=== PATIENT | female | born 1995 | race Caucasian/White ===

== ENCOUNTER 2017-09-21 11:00 | Inpatient (IN) | payer SELFPAY ==
[2017-09-21 09:41] VITALS: BMI 44.6
[2017-09-21] MEDS: Lactated Ringers 1,000 ML 50 ML IV ×2 (11:25→12:08)
[2017-09-21 11:52] LABS: Hematocrit 36.3 % (37-47); Hemoglobin 12.1 g/dl (12.0-15.0); Mean Corp Hgb Conc 33.3 g/gl (32-36); Mean Corpuscular Hgb 27.6 pg (27.0-32.0); Mean Corpuscular Volume 82.9 fL (81-99); Platelet Count 200 K/mm3 (150-450); RBC Distribution Width CV 13.3 % (11.6-14.6); RBC Distribution Width SD 39.7 fl (35.1-43.9); Red Blood Count 4.38 M/mm3 (4.2-5.4); White Blood Count 14.5 K/mm3 (4.4-11.0)
[2017-09-21 11:53] LABS: Scan Indicated on CBC? Y/N NO
[2017-09-21] MEDS: fentaNYL-bupivacaine (epidural) 100 ML BAG EPIDURAL (12:35)
--- NOTE | 2017-09-21 13:09 | PCM.HP.OB ---
- Problem List (1) Obesity affecting in third trimester Status: Acute (2) Hx of herpes simplex infection Status: Resolved History Date of Admission: 09/21/17 Final DEMETRIUS: 09/17/17 Final DEMETRIUS Source: US <20 weeks Gestational age: 40 Weeks and 4 Days History of this : This is a 22 year-old, G [], P [], at 40 weeks gestational age. Allergies No Known Allergies Allergy (Verified 09/21/17 09:43) Home Medications: Home Medications Acyclovir [Zovirax] 400 mg PO TID 09/21/17 Vits [Prenatabs FA] 1 tablet PO DAILY 09/21/17 Acyclovir 400mg PO TID Smoking Status: Never smoker Alcohol: None Number of Fetus(es): 1 History Past Pregnancies: Past Pregnancies Delivery Date Name GA/Weeks Outcome Route Weight Gender Labor Length Anesthesia Delivery Location Provider FOB Labs: GBS Neg, Urine tox Neg, GC/CT = Neg/ Neg, H/H = 12.3/35.1, 1 hours GCT = 102, HIV = Neg, HbSag = Neg, Rubella = Immune, Rh POs Expected Delivery Method: Spontaneous Vaginal Describe any other labor & delivery plans:: Desires epidural with planned Number of Visits: 6 with [facility], previous provider in [place] Review of Systems Constitutional: Denies: Chills, Fever, Weight Change HEENT: Denies: Head Aches, Sinus Congestion, Sinus Drainage Cardiovascular: Denies: Chest Pain, Palpitations Respiratory: Denies: Cough, Shortness of breath at rest, Sputum production Gastrointestinal: Denies: Abdominal Pain, Nausea, Vomiting Genitourinary: Denies: Dysuria Musculoskeletal: Denies: Joint Pain, Joint Tenderness Skin: Denies: Rash, Wounds Neurological: Denies: Numbness, Tingling, Focal weakness Psychiatric: Denies: Anxiety, Depression, Homicidal Ideations, Suicidal Ideations Hematologic/ Lymphatic: Denies: Easy Bruising, Easy Bleeding Physical Exam Vitals: FHT baseline 140, moderate variability, + accels, no decels Ctx q 2-3 minutes, palpate moderate to strong General: Alert, Oriented x3, No apparent distress HEENT: Atraumatic, Normocephalic. Negative for: Thyromegaly, Lymphadenopathy Cardiovascular: Regular rate, Regular Rhythm Lungs: Clear to auscultation Abdomen: Bowel Sounds Present, Gravid, Appropriate for Gestational Age - EFW 8# Neurological: Deep Tendon Reflexes 2+/4 and Symmetrical, Neuro grossly intact PEAR PICKER: Normal external genitalia - No lesions noted. Negative for: Vulvar lesions Estimated gestational size: Appropriate for gestational size Presentation: Cephalic Cervix Dilation (cm): 4 - By RN exam initially, patient cervix then changed to 5/90/-2 and was admitted Station: -3 Effacement (%): 80 Assessment/Plan All Active Problems Obesity affecting in third trimester (Acute) Hx of herpes simplex infection (Resolved) This is a 22 year-old, G [2], P [1], at 40 weeks gestational age, Active Labor, Category I FHT P: 1) Admit patient, Dr. Caceres OB collaborating physician notified of admission 2) Epidural at this time if patient desires 3) Anticipate Bertha Beltran APRN-CNRosy
--- NOTE | 2017-09-21 13:18 | HP.PCM_ITS ---
- Problem List (1) Obesity affecting in third trimester Status: Acute (2) Hx of herpes simplex infection Status: Resolved History Date of Admission: 09/21/17 Final DEMETRIUS: 09/17/17 Final DEMETRIUS Source: US <20 weeks Gestational age: 40 Weeks and 4 Days History of this : This is a 22 year-old, G [], P [], at 40 weeks gestational age. Allergies No Known Allergies Allergy (Verified 09/21/17 09:43) Home Medications: Home Medications Acyclovir [Zovirax] 400 mg PO TID 09/21/17 Vits [Prenatabs FA] 1 tablet PO DAILY 09/21/17 Acyclovir 400mg PO TID Smoking Status: Never smoker Alcohol: None Number of Fetus(es): 1 History Past Pregnancies: Past Pregnancies Delivery Date Name GA/Weeks Outcome Route Weight Gender Labor Length Anesthesia Delivery Location Provider FOB Labs: GBS Neg, Urine tox Neg, GC/CT = Neg/ Neg, H/H = 12.3/35.1, 1 hours GCT = 102, HIV = Neg, HbSag = Neg, Rubella = Immune, Rh POs Expected Delivery Method: Spontaneous Vaginal Describe any other labor & delivery plans:: Desires epidural with planned Number of Visits: 6 with [facility], previous provider in [place] Review of Systems Constitutional: Denies: Chills, Fever, Weight Change HEENT: Denies: Head Aches, Sinus Congestion, Sinus Drainage Cardiovascular: Denies: Chest Pain, Palpitations Respiratory: Denies: Cough, Shortness of breath at rest, Sputum production Gastrointestinal: Denies: Abdominal Pain, Nausea, Vomiting Genitourinary: Denies: Dysuria Musculoskeletal: Denies: Joint Pain, Joint Tenderness Skin: Denies: Rash, Wounds Neurological: Denies: Numbness, Tingling, Focal weakness Psychiatric: Denies: Anxiety, Depression, Homicidal Ideations, Suicidal Ideations Hematologic/ Lymphatic: Denies: Easy Bruising, Easy Bleeding Physical Exam Vitals: FHT baseline 140, moderate variability, + accels, no decels Ctx q 2-3 minutes, palpate moderate to strong General: Alert, Oriented x3, No apparent distress HEENT: Atraumatic, Normocephalic. Negative for: Thyromegaly, Lymphadenopathy Cardiovascular: Regular rate, Regular Rhythm Lungs: Clear to auscultation Abdomen: Bowel Sounds Present, Gravid, Appropriate for Gestational Age - EFW 8# Neurological: Deep Tendon Reflexes 2+/4 and Symmetrical, Neuro grossly intact [employer]: Normal external genitalia - No lesions noted. Negative for: Vulvar lesions Estimated gestational size: Appropriate for gestational size Presentation: Cephalic Cervix Dilation (cm): 4 - By RN exam initially, patient cervix then changed to 5 /90/-2 and was admitted Station: -3 Effacement (%): 80 Assessment/Plan All Active Problems Obesity affecting in third trimester (Acute) Hx of herpes simplex infection (Resolved) This is a 22 year-old, G [2], P [1], at 40 weeks gestational age, Active Labor, Category I FHT P: 1) Admit patient, Dr. Caceres OB collaborating physician notified of admission 2) Epidural at this time if patient desires 3) Anticipate Bertha Beltran APRN-CNRosy
--- NOTE | 2017-09-21 13:18 | PCM.PN.BLA ---
Progress Note Addendum: Patient has received epidural and feels more comfortable now. Reports increased rectal pressure - SVE reveals 6-7/90/-2 with BBOW. Will continue expectant mgmt at this time, consider AROM if no cervical change in 2-4 hours with next exam. Bertha Beltran APRN-CNM
[2017-09-21] MEDS: Ondansetron 4 MG/2 ML Vial IV (16:12)
--- NOTE | 2017-09-21 17:05 | PCM.PN.BLA ---
Progress Note S: Patient sitting up in bed, remains comfortable with epidural at this time. Patient notes no changes in rectal or pelvic pressure. By RN exam, cervix has made minimal change. Decision for AROM done. O: VSS, Afebrile Abd gravid, HUGO by [facility], EFW = 8# FHT baseline 150, moderate variability, + accels, no decels Ctx a 1-3 minutes, moderately strong to palpation SVE = 6-7/90/-1 with BBOW, AROM for scant clear and mucus fluid A: 22 y/o @ 40+ weeks, Protracted Active Phase of Labor P: 1) AROM done without difficulty 2) Anticipate 3) If minimal to no cervical change, start IV pitocin for labor augmentation Bertha DIA
[2017-09-21] MEDS: Oxytocin 30 units/NS 500 ml 30 UNITS/500 ML IV.SOLN 334 UNITS IV (20:00)
[2017-09-21] MEDS: COPPER IUD 1 EACH IY (20:05)
--- NOTE | 2017-09-21 20:19 | PCM.OB.VAG ---
- Problem List (1) Obesity affecting in third trimester Status: Acute (2) Hx of herpes simplex infection Status: Resolved Vaginal Delivery Maternal Presentation: Active Labor Patient reported ctx that started last night and progressed spontaneously without issue to C/C/0 to +1 station after AROM. Amniotic Membrane Rupture Type: Artificial Amniotic Fluid Description: Clear, Moderate meconium - Clear fluid at AROM, during pushing meconium was visible on baby's head Final DEMETRIUS: 09/17/17 Gestational age: 40 Weeks and 4 Days doctor who attended delivery (if requested by OB): Earlene Real Date of Procedure: 09/21/17 Pre-Operative Diagnosis: Active Labor Post-Operative Diagnosis: with MSAF, no complications Surgery/ Procedure Performed: Spontaneous Vaginal Delivery Anesthesiologist: Toy Perales Type of Anesthesia: None Description of Procedure: Patient assessed and found to be C/C/0. Patient pushed well with urge. Delivered viable girl over 2nd degree lacerated perineum at 1952. Infant delivered OA, restituted to HUGO then LOT. Scant thin meconium seen on baby's head, moderate meconium noted in fluid after delivery of head. Peds staff at bedside for delivery. Shoulders and body then delivered without difficulty. Infant with spontaneous cry and respirations immediately, mouth and nose bulb suctioned. No indication for DeLee Deep Suctioning due to spontaneous lusty cry. Apgars 8 and 9. weight pending. Umbilical cord clamped and cut by FOB once it stopped pulsing. Placenta delivered spontaneously via Null mechanism intact with 3VC. Placental triage significant for MSAF and calcifications on maternal surface. Uterus vigorously massaged, large gush of blood noted initially. EBL = 250cc. FF midline @ 2FB below umbilicus. Paragard IUD placed using sterile technique per protocol. Upon inspection of vaginal vault, shallow 2nd degree perineal laceration noted and repaired under epidural analgesia in the usual fashion using 3-0 Rapide suture. Sponge and needle count correct. Vaginal sweep negative. Ice to perineum. Baby to breast, and bonding initiated. Bertha Beltran [employer]-CNM Presentation: Vertex Placental Delivery Description: Spontaneous Placenta Disposition: [facility] Cord Vessel Description: 3 Vessels Cord Entanglement: None Estimated Blood Loss: 250cc A gender: Female (1 minute): 8 (5 minute): 9 Episiotomy Description: None Laceration: Perineal Extension/lac, 2nd degree Medications given after delivery: IV Pitocin Complications: None
[2017-09-21] MEDS: Oxytocin 30 units/NS 500 ml 30 UNITS/500 ML IV.SOLN 167 UNITS IV (20:30)
--- NOTE | 2017-09-21 20:47 | DCINST_ITS ---
Discharge Diet: No Restrictions Discharge Activity: Return to Normal Activity, May not drive while taking narcotic pain medications., May Shower May resume sexual activity in: 4-6 weeks Additional Activity Instructions:: Nothing in the vagina for 4-6 weeks. You may return to work/school in 6 weeks. Call your doctor if your incision/area has: Continuous Slow Oozing, Sudden Increased Bleeding, Increased Pain/ Swelling, Increased Redness, Foul Smelling Discharge Additional Instructions: If you experience any of the following, contact your healthcare provider. * Bleeding that soaks a pad every hour for 2 hours * Fever 100.4 or higher * Unrelieved incision or abdominal pain * Swelling, redness, discharge or bleeding from your incision or episiotomy site * Your incision begins to separate * Problems urinating (including inability to urinate or burning while urinating) . * Visual changes * Severe headache * Flu-like symptoms * Pain or redness in one of both of your breasts * Pain, warmth, tenderness or swelling in your legs, especially the calf area * Frequent nausea and vomiting * Symptoms of depression or anxiety If you experience any of the following, call 911 or go to the nearest Emergency Room. * Chest pain * Problems breathing * Seizure activity * Partial or complete paralysis of a body part, slurred speech, weakness or drooping of the face, or a sudden inability to walk or hold your balance Allergies/Adverse Reactions: Allergies No Known Allergies Allergy (Verified 09/21/17 09:43) Medications to take at Discharge Acyclovir [Zovirax] 400 mg PO TID 09/21/17 Vits [Prenatabs FA] 1 tablet PO DAILY 09/21/17 Please Follow Up With: Bertha Beltran CNM When: Call to make an appointment with your doctor in 6 weeks. If you had elevated Blood Pressure or 4th degree laceration you will need to be seen in 2 weeks. Primary Care Physician: Care Physician,No Primary [Primary Care Provider] - Proposed Discharge Date: 09/23/17
[2017-09-21] MEDS: 0.9% Saline Lock 10 ML Syringe IV (21:47)
[2017-09-22] MEDS: Ibuprofen 600 MG Tablet PO ×3 (00:11→20:20)
--- NOTE | 2017-09-22 00:12 | NURSING ---
epidural cath d/c with blue tip intact.
[2017-09-22 00:17] VITALS: BP 123/67; PULSE 112; RESP 18; TEMP 36.6; O2SAT 99
[2017-09-22 03:43] VITALS: BP 102/46; PULSE 81; RESP 16; TEMP 36.3; O2SAT 97
[2017-09-22 08:45] VITALS: BP 120/66; PULSE 83; RESP 20; TEMP 36.9; O2SAT 97
[2017-09-22 12:45] VITALS: BP 118/58; PULSE 74; TEMP 36.4; O2SAT 98
[2017-09-22 16:28] VITALS: BP 119/68; PULSE 84; TEMP 36.6; O2SAT 97
--- NOTE | 2017-09-22 19:50 | PCM.PN.OB ---
Patient Problems: Active and Suspected Problems Obesity affecting in third trimester (Acute) Subjective: No complaints - Physical Exam General: Alert, Oriented x3 Abdomen: Soft, Non Tender, Non-Distended - ff mid & below umb Extremities: No Calf Tenderness Vital Signs Temp Pulse Resp BP Pulse Ox 97.9 F 84 20 H 119/68 97 09/22/17 16:28 09/22/17 16:28 09/22/17 08:45 09/22/17 16:28 09/22/17 16:28 Oxygen Delivery Method Room Air Weight: 285 lb 4.45 oz Body Mass Index (BMI) 44.6 Intake and Output for Last 24 Hours 09/20/17 09/21/17 09/22/17 23:59 23:59 23:59 Intake Total 845 / 845 Output Total 2750 / 2750 Balance 845 / 845 -2750 / -2750 Medical Necessity - Tobacco Use Smoking Status: Never smoker Assessment/Plan All Active Problems Obesity affecting in third trimester (Acute) Hx of herpes simplex infection (Resolved) PPD#1 Routine care
[2017-09-22 20:20] VITALS: BP 124/61; PULSE 96; RESP 16; TEMP 36.6; O2SAT 97
[2017-09-23 02:45] VITALS: BP 118/61; PULSE 94; RESP 16; TEMP 36.9
[2017-09-23 07:56] VITALS: BP 115/73; PULSE 87; RESP 16; TEMP 36.7; O2SAT 98
--- NOTE | 2017-09-23 08:07 | PCM.PN.OB ---
Patient Problems: Active and Suspected Problems Obesity affecting in third trimester (Acute) Subjective: Patient sitting up in bed today, reports some new onset pain and burning with urination today. Patient notes last night that pain was most intense; patient felt like she had to push to get urine out. Today denies urge and pressure in bladder, but continues to have some burning pain with urination. Patient reports this pain even though she continues to use water bottle to help dilute urine. Otherwise, patient denies any pain or discomfort. Objective: Nipples without cracks or blisters, no erythema noted Abdomen NT x 4 quadrants, FF midline 2FB below umbilicus Perineum well-approximated, scant rubra lochia, no evidence of urethral bleeding or external inflammation noted around urethra No edema in LE, neg Connie's sign bilaterally - Physical Exam General: Alert, Oriented x3, Cooperative HEENT: Atraumatic, Normocephalic Neck: Supple Lungs: Normal air movement Cardiovascular: Regular rate, No murmurs Abdomen: Soft, Non Tender Extremities: No edema, Capillary Refill Less than 3 Seconds Skin: No rashes, No breakdown Musculoskeletal: No Tenderness to Palpation of Joints or Extremities Neurological: Cranial nerves II-XII grossly intact, Deep Tendon Reflexes 2+/4 and Symmetrical Psych/Mental Status: Normal Affect, Appropriate, Alert and oriented to time, place, person, mood and affect Vital Signs Temp Pulse Resp BP Pulse Ox 98.1 F 87 16 115/73 98 09/23/17 07:56 09/23/17 07:56 09/23/17 07:56 09/23/17 07:56 09/23/17 07:56 Oxygen Delivery Method Room Air Weight: 285 lb 4.45 oz Body Mass Index (BMI) 44.6 Intake and Output for Last 24 Hours 09/21/17 09/22/17 09/23/17 23:59 23:59 23:59 Intake Total 845 / 845 Output Total 2750 / 2750 Balance 845 / 845 -2750 / -2750 Medical Necessity - Tobacco Use Smoking Status: Never smoker Assessment/Plan All Active Problems Obesity affecting in third trimester (Acute) Hx of herpes simplex infection (Resolved) 22 y/o s/p PPD #2, Normal Course P: 1) Discharge to home pending discharge - anticipatory health teaching done 2) Continue 3) CCMS sent now, Rx for Augmentin 125/875mg PO BID x 5 days provided to patient in event that CCMS comes back positive for evidence of UTI 4) RTC in 6 weeks to [facility] for PP visit Bertha DIA
--- NOTE | 2017-09-23 11:10 | NURSING ---
discharged home at 1050, emotional support given to mom with bresat feeding issues, mom requested bottle prior to discharged, selvin delong talked with mom prior to discharge
== END 2017-09-23 10:50 | disposition home or self-care (01) | DRG 774 ==
LOC: WPOUT 11:06
PROVIDERS: Admitting Provider Obstetrics & Gynecology; Visit Provider Advanced Practice Midwife
DX: O77.0 Labor and delivery complicated by meconium in amniotic fluid (principal); O98.513 Other viral diseases complicating pregnancy, third trimester; Z68.41 Body mass index [BMI] 40.0-44.9, adult; A60.9 Anogenital herpesviral infection, unspecified; O99.214 Obesity complicating childbirth; E66.9 Obesity, unspecified; O70.1 Second degree perineal laceration during delivery; O99.89 Other specified diseases and conditions complicating pregnancy, childbirth and the puerperium; R30.0 Dysuria; Z3A.40 40 weeks gestation of pregnancy; Z37.0 Single live birth
CPT/HCPCS: 59025; 59050; 85027; 86850; 86900; 87086; 87088; 99218; J7120; A4216; G0378; J2405